=== PATIENT | female | born 1940 | race Caucasian/White ===

== ENCOUNTER 2017-06-24 19:41 | Inpatient (IN) | payer OTHER ==
[~2017-06-24] VITALS: Ht 154.9 cm; Wt 77.5 kg
[2017-06-24] MEDS ORDERED: AMLODIPINE (19:49)
[2017-06-24] MEDS ORDERED: SYNTHROID (19:49)
[2017-06-24] MEDS ORDERED: [UNRECOGNIZED DRUG - OTHER] (20:00)
[2017-06-24] MEDS ORDERED: VIT D (20:00)
[2017-06-24] MEDS ORDERED: SODIUM CHLORIDE 0.9% 1,000 ML IV ONE (20:09)
[2017-06-24] MEDS ORDERED: ONDANSETRON 2MG/ML, 2ML ONE ×2 (20:29→23:02)
[2017-06-24] MEDS ORDERED: MORPHINE SULFATE 4 MG/ML, 1ML ONE ×2 (20:29→21:09)
[2017-06-24] MEDS: MORPHINE SULFATE 4 MG/ML, 1ML IVPush PRN ×2 (20:30→21:10)
[2017-06-24] MEDS ORDERED: SODIUM CHLORIDE 0.9% 1,000ML IVBOLUS ONE (20:30)
[2017-06-24] MEDS ORDERED: SODIUM CHLORIDE FLUSH 10ML SYR IVF ONE (20:30)
[2017-06-24] MEDS ORDERED: ONDANSETRON 2MG/ML, 2ML IVPush ONE (20:30)
[2017-06-24 20:50] LABS: BASOPHILS # (AUTO) 0.02 x10^3/uL (0-0.1); BASOPHILS % (AUTO) 0 % (0-1); EOSINOPHILS # (AUTO) 0.04 x10^3/uL (0-0.4); EOSINOPHILS % (AUTO) 1 % (1-7); LYMPHOCYTES # (AUTO) 0.91 x10^3/uL (1-3.4); LYMPHOCYTES % (AUTO) 21 % (22-44); MD NO; MEAN CORPUSCULAR HEMOGLOBIN 32.1 pg (27.0-34.8); MEAN CORPUSCULAR HGB CONC 32.9 g/dL (32.4-35.8); MEAN CORPUSCULAR VOLUME 97.7 fL (80-100); MEAN PLATELET VOLUME 7.3 fL (7.4-10.4); MONOCYTES # (AUTO) 0.09 x10^3/uL (0.2-0.8); MONOCYTES % (AUTO) 2 % (2-9); NEUTROPHILS # (AUTO) 3.32 x10^3/uL (1.8-6.8); NEUTROPHILS % (AUTO) 76 % (42-75); PLATELET COUNT 389 x10^3/uL (130-400); RED CELL DISTRIBUTION WIDTH 14.7 % (9.6-15.2)
[2017-06-24 20:56] LABS: ACETONE, SERUM Small (20mg/dL) mg/dL (Negative)
[2017-06-24 20:57] LABS: INTERNATIONAL NORMALIZED RATIO 0.98 (0.93-1.1); PROTHROMBIN TIME 10.1 Seconds (9.6-11.5)
[2017-06-24 21:00] LABS: MICROSCOPIC NOT IND
[2017-06-24 21:01] LABS: ANION GAP 12 mmol/L (5-15); CALCIUM 8.3 mg/dL (8.5-10.1); CHLORIDE 105 mmol/L (98-107)
[2017-06-24 21:02] LABS: ALANINE AMINOTRANSFERASE 22 U/L (12-78); ALBUMIN 3.2 g/dL (3.4-5.0)
[2017-06-24 21:05] LABS: CULTURE INDICATED? NO
[2017-06-24 21:06] LABS: ALKALINE PHOSPHATASE 71 U/L (45-117); BILIRUBIN,TOTAL 0.3 mg/dL (0.2-1.0); TOTAL PROTEIN 7.2 g/dL (6.4-8.2)
[2017-06-24 21:08] LABS: TROPONIN I < 0.015 ng/mL (0.000-0.045)
[2017-06-24] MEDS ORDERED: METRONIDAZOLE PMX 500MG/100ML 100 ML ONE (22:20)
[2017-06-24] MEDS ORDERED: METRONIDAZOLE PMX 500MG/100ML 100 ML IVPB ONE (22:30)
[2017-06-24] MEDS ORDERED: CEFEPIME 2 GM in DEXTROSE 5% 100 ML IVPB ONE (22:30)
[2017-06-24] MEDS ORDERED: OMNIPAQUE 350 MG/ML, 100ML BOTTLE ONE (22:30)
[2017-06-24] MEDS ORDERED: HYDROmorphone 1 MG/ML, 1ML IVPush PRN (22:30)
[2017-06-24] MEDS ORDERED: SODIUM CHLORIDE FLUSH 10ML SYR IVF PRN (23:00)
[2017-06-24] MEDS ORDERED: FENTANYL PF 250 MCG/5ML ONE ×3 (23:00→23:42)
[2017-06-24] MEDS ORDERED: GLYCOPYRROLATE 0.2MG/1ML, 5ML ONE (23:02)
[2017-06-24] MEDS ORDERED: EPHEDRINE 50 MG/ML, 1ML ONE (23:02)
[2017-06-24] MEDS ORDERED: NEOSTIGMINE 1 MG/ML, 10ML ONE (23:02)
[2017-06-24] MEDS ORDERED: PROPOFOL 10 MG/ML, 20ML ONE (23:02)
[2017-06-24] MEDS ORDERED: ROCURONIUM 10 MG/ML,10ML ONE (23:02)
[2017-06-25] MEDS ORDERED: FENTANYL PF 250 MCG/5ML ONE (00:19)
[2017-06-25] MEDS ORDERED: LABETALOL 5MG/ML, 20ML IV PRN (00:30)
[2017-06-25] MEDS ORDERED: FENTANYL PF 100 MCG/2ML IV PRN (00:30)
[2017-06-25] MEDS ORDERED: ONDANSETRON 2MG/ML, 2ML IVPush PRN ×2 (00:30→01:00)
[2017-06-25] MEDS ORDERED: HYDROmorphone 1 MG/ML, 1ML IV PRN (00:30)
[2017-06-25] MEDS ORDERED: MEPERIDINE/PF 25MG/0.5ML IVPush PRN (00:30)
[2017-06-25] MEDS ORDERED: HYDROmorphone 2 MG/ML, 1ML ONE (00:45)
[2017-06-25] MEDS ORDERED: SODIUM CHLORIDE 0.9% 1,000 ML IV SCH (00:56)
[2017-06-25] MEDS ORDERED: POTASSIUM CHLORIDE 40 MEQ in SODIUM CHLORIDE 0.9% 500 ML IV ONE (01:00)
[2017-06-25] MEDS ORDERED: ENALAPRILAT 1.25 MG/ML, 2ML IVPush PRN (01:00)
[2017-06-25] MEDS ORDERED: hydrALAzine 20 MG/ML, 1ML IVPush PRN (01:00)
[2017-06-25] MEDS ORDERED: OXYcodone IR 5MG TABLET PO PRN (01:00)
[2017-06-25] MEDS ORDERED: ACETAMINOPHEN 325 MG TABLET PO PRN (01:00)
[2017-06-25] MEDS ORDERED: morphine SULFATE 10 MG/ML, 1ML IVPush PRN (01:00)
[2017-06-25 01:26] LABS: FREE T4 (FREE THYROXINE) 1.2 ng/dL (0.76-1.46)
[2017-06-25 01:30] LABS: HEMOGLOBIN A1C 5.7 % (4.2-6.3)
[2017-06-25] MEDS: PIPERACILLIN/TAZO/PMX 3.375GM 50 ML IV SCH ×5 (01:44→20:11)
[2017-06-25 02:27] VITALS: BP 155/68
[2017-06-25] MEDS ORDERED: DIPHENHYDRAMINE 50 MG/ML, 1ML IV PRN (02:30)
[2017-06-25] MEDS ORDERED: morphine SULFATE 10 MG/ML, 1ML IV PRN (02:30)
[2017-06-25] MEDS ORDERED: ACETAMINOPHEN 650 MG SUPP PR PRN (02:30)
[2017-06-25] MEDS ORDERED: ONDANSETRON 2MG/ML, 2ML IV PRN (02:30)
[2017-06-25 04:00] VITALS: BP 118/81
[2017-06-25] MEDS: LACTATED RINGERS 1,000 ML IV SCH ×2 (04:16→12:31)
[2017-06-25 04:47] LABS: ALBUMIN 2.2 g/dL (3.4-5.0); ANION GAP 9 mmol/L (5-15); CALCIUM 7.2 mg/dL (8.5-10.1); CHLORIDE 111 mmol/L (98-107)
[2017-06-25 04:51] LABS: ALANINE AMINOTRANSFERASE 21 U/L (12-78); ALKALINE PHOSPHATASE 45 U/L (45-117); BILIRUBIN,TOTAL 0.6 mg/dL (0.2-1.0); CREATININE 1.25 mg/dL (0.55-1.02); TOTAL PROTEIN 5.2 g/dL (6.4-8.2)
[2017-06-25 05:18] LABS: MEAN CORPUSCULAR HEMOGLOBIN 32.5 pg (27.0-34.8); MEAN CORPUSCULAR HGB CONC 33.2 g/dL (32.4-35.8); MEAN CORPUSCULAR VOLUME 97.8 fL (80-100); PLATELET COUNT 291 x10^3/uL (130-400); RED CELL DISTRIBUTION WIDTH 14.9 % (9.6-15.2)
[2017-06-25 05:51] LABS: BASOPHILS % (AUTO) 0 % (0-1); EOSINOPHILS % (AUTO) 0 % (1-7); LYMPHOCYTES # (AUTO) 0.39 x10^3/uL (1-3.4); LYMPHOCYTES % (AUTO) 17 % (22-44); MD SCAN; MONOCYTES # (AUTO) 0.25 x10^3/uL (0.2-0.8); MONOCYTES % (AUTO) 11 % (2-9); NEUTROPHILS # (AUTO) 1.68 x10^3/uL (1.8-6.8); NEUTROPHILS % (AUTO) 73 % (42-75)
[2017-06-25] MEDS ORDERED: INSULIN REGULAR, HUMAN 100 UNIT/ML 3ML VIAL LOW DOSE SS SQ-INSULIN SCH (07:00)
[2017-06-25] MEDS ORDERED: MAGNESIUM SULFATE PMX 4GM/100M 100 ML IV ONE (07:30)
[2017-06-25] MEDS ORDERED: INSULIN REGULAR 100 UNITS/ML, 3ML VIAL SQ-INSULIN SCH (09:00)
[2017-06-25] MEDS ORDERED: FAMOTIDINE 20 MG/2 ML IVPush SCH (09:00)
[2017-06-25] MEDS: ENOXAPARIN 30 MG/0.3 ML SQ SCH (12:29)
[2017-06-25] MEDS: FAMOTIDINE 20 MG/2 ML IVPush SCH ×2 (12:29→20:12)
[2017-06-25] MEDS: MICAFUNGIN 100 MG in SODIUM CHLORIDE 0.9% 100 ML IV SCH (12:33)
[2017-06-25] MEDS ORDERED: SODIUM CHLORIDE 0.9% 1,000ML IVBOLUS ONE (13:00)
[2017-06-26] MEDS: LACTATED RINGERS 1,000 ML IV SCH ×2 (00:54→07:00)
[2017-06-26] MEDS: PIPERACILLIN/TAZO/PMX 3.375GM 50 ML IV SCH ×4 (01:49→21:16)
[2017-06-26 04:00] VITALS: BP 123/55
[2017-06-26 04:43] LABS: BASOPHILS % (AUTO) 0 % (0-1); EOSINOPHILS % (AUTO) 0 % (1-7); LYMPHOCYTES # (AUTO) 0.61 x10^3/uL (1-3.4); LYMPHOCYTES % (AUTO) 5 % (22-44); MD NO; MEAN CORPUSCULAR HEMOGLOBIN 31.8 pg (27.0-34.8); MEAN CORPUSCULAR HGB CONC 32.2 g/dL (32.4-35.8); MEAN CORPUSCULAR VOLUME 98.7 fL (80-100); MEAN PLATELET VOLUME 7.4 fL (7.4-10.4); MONOCYTES # (AUTO) 0.37 x10^3/uL (0.2-0.8); MONOCYTES % (AUTO) 3 % (2-9); NEUTROPHILS % (AUTO) 92 % (42-75); PLATELET COUNT 267 x10^3/uL (130-400); RED BLOOD COUNT 4.28 x10^6/uL (3.82-5.3); RED CELL DISTRIBUTION WIDTH 14.9 % (9.6-15.2)
[2017-06-26 04:53] LABS: ALBUMIN 1.6 g/dL (3.4-5.0); ANION GAP 8 mmol/L (5-15); CALCIUM 7.1 mg/dL (8.5-10.1); CHLORIDE 114 mmol/L (98-107)
[2017-06-26 05:07] LABS: ALANINE AMINOTRANSFERASE 13 U/L (12-78); ALKALINE PHOSPHATASE 30 U/L (45-117); BILIRUBIN,TOTAL 0.4 mg/dL (0.2-1.0); CHOL/HDL RATIO 1.7; CHOLESTEROL, TOTAL 88 mg/dL (140-239); HDL CHOL % 59 % (28-40); HDL CHOLESTEROL (DIRECT) 52 mg/dL (40-60); LDL CHOLESTEROL,CALCULATED 27 mg/dL (54-169); LDL/HDL RATIO 0.5 (0.5-3.0); TRIGLYCERIDES 44 mg/dL (50-200); VLDL CHOLESTEROL 9 mg/dL (0-25)
[2017-06-26] MEDS ORDERED: ASPI-496 PO (06:53)
[2017-06-26] MEDS: ENOXAPARIN 30 MG/0.3 ML SQ SCH (09:53)
[2017-06-26] MEDS: FAMOTIDINE 20 MG/2 ML IVPush SCH ×2 (09:53→21:16)
[2017-06-26] MEDS: SODIUM CHLORIDE 0.9% 1,000 ML IV SCH ×2 (10:00→21:17)
[2017-06-26] MEDS: MICAFUNGIN 100 MG in SODIUM CHLORIDE 0.9% 100 ML IV SCH (12:52)
[2017-06-26 12:59] VITALS: BP 133/82
[2017-06-26 19:47] VITALS: BP 103/55
[2017-06-27 01:46] VITALS: BP 98/86
[2017-06-27] MEDS: PIPERACILLIN/TAZO/PMX 3.375GM 50 ML IV SCH ×4 (02:16→20:41)
[2017-06-27 05:15] LABS: ALANINE AMINOTRANSFERASE 13 U/L (12-78); ALBUMIN 1.5 g/dL (3.4-5.0); ANION GAP 6 mmol/L (5-15); CALCIUM 7.3 mg/dL (8.5-10.1); CHLORIDE 113 mmol/L (98-107); CREATININE 0.98 mg/dL (0.55-1.02); MEAN CORPUSCULAR HGB CONC 32.8 g/dL (32.4-35.8); MEAN CORPUSCULAR VOLUME 97.4 fL (80-100); PLATELET COUNT 229 x10^3/uL (130-400); RED BLOOD COUNT 3.56 x10^6/uL (3.82-5.3); RED CELL DISTRIBUTION WIDTH 14.6 % (9.6-15.2)
[2017-06-27 05:17] LABS: ALKALINE PHOSPHATASE 38 U/L (45-117); BILIRUBIN,TOTAL 0.4 mg/dL (0.2-1.0); TOTAL PROTEIN 5.3 g/dL (6.4-8.2)
[2017-06-27 06:18] LABS: BASOPHILS % (AUTO) 0 % (0-1); EOSINOPHILS % (AUTO) 0 % (1-7); LYMPHOCYTES # (AUTO) 0.55 x10^3/uL (1-3.4); LYMPHOCYTES % (AUTO) 6 % (22-44); MD SCAN; MONOCYTES # (AUTO) 0.23 x10^3/uL (0.2-0.8); MONOCYTES % (AUTO) 2 % (2-9); NEUTROPHILS # (AUTO) 8.81 x10^3/uL (1.8-6.8); NEUTROPHILS % (AUTO) 92 % (42-75)
[2017-06-27] MEDS: SODIUM CHLORIDE 0.9% 1,000 ML IV SCH ×3 (06:35→23:59)
[2017-06-27 07:22] VITALS: BP 100/89
[2017-06-27] MEDS: ENOXAPARIN 30 MG/0.3 ML SQ SCH (07:41)
[2017-06-27] MEDS: FAMOTIDINE 20 MG/2 ML IVPush SCH (07:42)
[2017-06-27] MEDS: LEVOTHYROXINE 100 MCG INJ IVPush SCH (07:42)
[2017-06-27] MEDS ORDERED: morphine SULFATE 10 MG/ML, 1ML IV PRN (12:30)
[2017-06-27 13:13] VITALS: BP 118/59
[2017-06-27] MEDS: OXYcodone 5 MG/5 ML ORAL.SOL UDC PO PRN (20:09)
[2017-06-27 20:22] VITALS: BP 137/71
[2017-06-27] MEDS: ACETAMINOPHEN 325 MG TABLET PO PRN (23:59)
[2017-06-27] MEDS: DIPHENHYDRAMINE 25 MG CAPSULE PO PRN (23:59)
[2017-06-28] MEDS: PIPERACILLIN/TAZO/PMX 3.375GM 50 ML IV SCH (01:58)
[2017-06-28 03:29] VITALS: BP 139/83
[2017-06-28 04:52] LABS: MEAN CORPUSCULAR VOLUME 96.8 fL (80-100); MEAN PLATELET VOLUME 7.2 fL (7.4-10.4); PLATELET COUNT 247 x10^3/uL (130-400); RED BLOOD COUNT 3.39 x10^6/uL (3.82-5.3); RED CELL DISTRIBUTION WIDTH 14.8 % (9.6-15.2)
[2017-06-28 05:05] LABS: ANION GAP 9 mmol/L (5-15); CALCIUM 7.6 mg/dL (8.5-10.1); CHLORIDE 112 mmol/L (98-107)
[2017-06-28 05:48] LABS: BASOPHILS # (AUTO) 0.01 x10^3/uL (0-0.1); BASOPHILS % (AUTO) 0 % (0-1); EOSINOPHILS # (AUTO) 0.03 x10^3/uL (0-0.4); EOSINOPHILS % (AUTO) 0 % (1-7); LYMPHOCYTES # (AUTO) 0.61 x10^3/uL (1-3.4); LYMPHOCYTES % (AUTO) 5 % (22-44); MD SCAN; MONOCYTES # (AUTO) 0.41 x10^3/uL (0.2-0.8); MONOCYTES % (AUTO) 4 % (2-9); NEUTROPHILS # (AUTO) 10.35 x10^3/uL (1.8-6.8); NEUTROPHILS % (AUTO) 91 % (42-75)
[2017-06-28 06:38] VITALS: BP 162/93
[2017-06-28] MEDS: ENOXAPARIN 40 MG/0.4 ML SQ SCH (08:43)
[2017-06-28] MEDS: SODIUM CHLORIDE 0.9% 1,000 ML IV SCH (08:44)
[2017-06-28] MEDS: ERTAPENEM 1 GM in SODIUM CHLORIDE 0.9% 50 ML IV SCH (08:44)
[2017-06-28] MEDS: LEVOTHYROXINE 100 MCG INJ IVPush SCH (08:44)
[2017-06-28] MEDS: OXYcodone 5 MG/5 ML ORAL.SOL UDC PO PRN ×2 (12:46→16:27)
[2017-06-28 13:52] VITALS: BP 151/84
[2017-06-28 19:00] VITALS: BP 162/86
[2017-06-28] MEDS: DIPHENHYDRAMINE 25 MG CAPSULE PO PRN (21:06)
[2017-06-28] MEDS: ACETAMINOPHEN 325 MG TABLET PO PRN (21:06)
[2017-06-29] MEDS: D5%-0.9% NACL 1,000 ML IV SCH ×2 (00:11→22:00)
[2017-06-29 01:45] VITALS: BP 153/83
[2017-06-29] MEDS: ACETAMINOPHEN 325 MG TABLET PO PRN ×4 (02:01→22:01)
[2017-06-29] MEDS: OXYcodone 5 MG/5 ML ORAL.SOL UDC PO PRN (04:05)
[2017-06-29 04:57] LABS: BASOPHILS # (AUTO) 0.01 x10^3/uL (0-0.1); BASOPHILS % (AUTO) 0 % (0-1); EOSINOPHILS # (AUTO) 0.09 x10^3/uL (0-0.4); EOSINOPHILS % (AUTO) 1 % (1-7); LYMPHOCYTES # (AUTO) 0.66 x10^3/uL (1-3.4); LYMPHOCYTES % (AUTO) 8 % (22-44); MD NO; MEAN CORPUSCULAR HGB CONC 32.9 g/dL (32.4-35.8); MEAN PLATELET VOLUME 6.9 fL (7.4-10.4); MONOCYTES # (AUTO) 0.55 x10^3/uL (0.2-0.8); MONOCYTES % (AUTO) 7 % (2-9); NEUTROPHILS # (AUTO) 7.09 x10^3/uL (1.8-6.8); NEUTROPHILS % (AUTO) 85 % (42-75); PLATELET COUNT 269 x10^3/uL (130-400); RED BLOOD COUNT 3.51 x10^6/uL (3.82-5.3); RED CELL DISTRIBUTION WIDTH 14.8 % (9.6-15.2)
[2017-06-29 05:02] LABS: ANION GAP 7 mmol/L (5-15); CALCIUM 7.6 mg/dL (8.5-10.1); CHLORIDE 109 mmol/L (98-107); CREATININE 0.66 mg/dL (0.55-1.02)
[2017-06-29] MEDS: ERTAPENEM 1 GM in SODIUM CHLORIDE 0.9% 50 ML IV SCH (07:20)
[2017-06-29] MEDS: ENOXAPARIN 40 MG/0.4 ML SQ SCH (07:20)
[2017-06-29] MEDS: LEVOTHYROXINE 100 MCG INJ IVPush SCH (07:20)
[2017-06-29 07:35] VITALS: BP 162/87
[2017-06-29 07:38] VITALS: BP 152/85
[2017-06-29 13:14] VITALS: BP 156/89
[2017-06-29 19:35] VITALS: BP_SYST 165; BP_DIAS 94; BP_DIAS 99
[2017-06-30 02:09] VITALS: BP 153/84
[2017-06-30] MEDS: ACETAMINOPHEN 325 MG TABLET PO PRN ×2 (06:05→18:27)
[2017-06-30 08:01] VITALS: BP 150/87
[2017-06-30] MEDS: LEVOTHYROXINE 100 MCG INJ IVPush SCH (08:08)
[2017-06-30] MEDS: ENOXAPARIN 40 MG/0.4 ML SQ SCH (08:25)
[2017-06-30] MEDS: ERTAPENEM 1 GM in SODIUM CHLORIDE 0.9% 50 ML IV SCH (08:25)
[2017-06-30] MEDS: D5%-0.9% NACL 1,000 ML IV SCH (11:20)
[2017-06-30 14:17] VITALS: BP 163/80
[2017-06-30 19:10] VITALS: BP 160/88
[2017-07-01] MEDS: D5%-0.9% NACL 1,000 ML IV SCH ×2 (00:40→14:00)
[2017-07-01 01:13] VITALS: BP 167/93
[2017-07-01 08:00] VITALS: BP 167/97
[2017-07-01] MEDS: ENOXAPARIN 40 MG/0.4 ML SQ SCH (08:10)
[2017-07-01] MEDS: ERTAPENEM 1 GM in SODIUM CHLORIDE 0.9% 50 ML IV SCH (08:10)
[2017-07-01] MEDS: LEVOTHYROXINE 100 MCG INJ IVPush SCH (08:10)
[2017-07-01] MEDS ORDERED: POLYETHYLENE GLYCOL 17 GM PACKET PO PRN (11:00)
[2017-07-01 13:08] VITALS: BP 157/84
[2017-07-01] MEDS: ACETAMINOPHEN 325 MG TABLET PO PRN ×2 (13:53→20:56)
[2017-07-01 19:33] VITALS: BP 145/82
[2017-07-02] MEDS: ACETAMINOPHEN 325 MG TABLET PO PRN ×3 (01:37→19:09)
[2017-07-02 01:51] VITALS: BP 154/89
[2017-07-02] MEDS: D5%-0.9% NACL 1,000 ML IV SCH ×2 (03:20→13:51)
[2017-07-02] MEDS: LEVOTHYROXINE 50 MCG TABLET PO SCH (04:45)
[2017-07-02 05:19] LABS: ALANINE AMINOTRANSFERASE 12 U/L (12-78); ALBUMIN 1.7 g/dL (3.4-5.0); ANION GAP 6 mmol/L (5-15); CHLORIDE 105 mmol/L (98-107); CREATININE 0.63 mg/dL (0.55-1.02)
[2017-07-02 05:21] LABS: ALKALINE PHOSPHATASE 58 U/L (45-117); BASOPHILS # (AUTO) 0.01 x10^3/uL (0-0.1); BASOPHILS % (AUTO) 0 % (0-1); BILIRUBIN,TOTAL 0.3 mg/dL (0.2-1.0); EOSINOPHILS # (AUTO) 0.16 x10^3/uL (0-0.4); EOSINOPHILS % (AUTO) 2 % (1-7); LYMPHOCYTES # (AUTO) 0.88 x10^3/uL (1-3.4); LYMPHOCYTES % (AUTO) 8 % (22-44); MD NO; MEAN CORPUSCULAR HEMOGLOBIN 31.8 pg (27.0-34.8); MEAN CORPUSCULAR HGB CONC 33.4 g/dL (32.4-35.8); MEAN CORPUSCULAR VOLUME 95.2 fL (80-100); MONOCYTES # (AUTO) 0.59 x10^3/uL (0.2-0.8); MONOCYTES % (AUTO) 5 % (2-9); NEUTROPHILS # (AUTO) 9.45 x10^3/uL (1.8-6.8); NEUTROPHILS % (AUTO) 85 % (42-75); PLATELET COUNT 353 x10^3/uL (130-400); RED BLOOD COUNT 3.58 x10^6/uL (3.82-5.3); RED CELL DISTRIBUTION WIDTH 14.8 % (9.6-15.2); TOTAL PROTEIN 5.9 g/dL (6.4-8.2)
[2017-07-02 07:20] VITALS: BP 168/94
[2017-07-02] MEDS: ERTAPENEM 1 GM in SODIUM CHLORIDE 0.9% 50 ML IV SCH (07:53)
[2017-07-02] MEDS: ENOXAPARIN 40 MG/0.4 ML SQ SCH (07:53)
[2017-07-02 14:13] VITALS: BP 151/89
[2017-07-02 18:44] VITALS: BP 146/82
[2017-07-03 00:38] VITALS: BP 154/83
[2017-07-03] MEDS: OXYcodone 5 MG/5 ML ORAL.SOL UDC PO PRN (00:48)
[2017-07-03] MEDS: D5%-0.9% NACL 1,000 ML IV SCH ×2 (04:31→19:20)
[2017-07-03] MEDS: LEVOTHYROXINE 50 MCG TABLET PO SCH (06:39)
[2017-07-03 07:41] VITALS: BP 171/92
[2017-07-03] MEDS: ENOXAPARIN 40 MG/0.4 ML SQ SCH (07:49)
[2017-07-03] MEDS: ERTAPENEM 1 GM in SODIUM CHLORIDE 0.9% 50 ML IV SCH (07:49)
[2017-07-03] MEDS ORDERED: AMLO5TAB2 PO (09:32)
[2017-07-03] MEDS ORDERED: ACET325T14 PO (09:32)
[2017-07-03] MEDS ORDERED: POLY17PO5 PO (09:32)
[2017-07-03] MEDS ORDERED: LEVO50TA PO (09:32)
[2017-07-03] MEDS ORDERED: DIPH25CA61 PO (09:32)
[2017-07-03] MEDS ORDERED: AMPI1.5V IV (09:32)
[2017-07-03] MEDS ORDERED: ALBUTEROL SULFATE 2.5 MG/3 ML ONE (09:47)
[2017-07-03] MEDS ORDERED: ALBUTEROL SULFATE 2.5 MG/3 ML NPPB ONE (10:00)
[2017-07-03] MEDS: AMLODIPINE 5 MG TABLET PO SCH ×2 (10:31→20:33)
[2017-07-03] MEDS: ACETAMINOPHEN 325 MG TABLET PO PRN ×2 (13:03→17:29)
[2017-07-03 13:28] LABS: MICROSCOPIC INDICATED
[2017-07-03 13:36] LABS: CULTURE INDICATED? NO
[2017-07-03 14:46] VITALS: BP 127/74
[2017-07-03 18:54] VITALS: BP 152/77
[2017-07-04 02:45] VITALS: BP 137/83
[2017-07-04] MEDS: LEVOTHYROXINE 50 MCG TABLET PO SCH (06:22)
[2017-07-04 07:08] VITALS: BP 136/78
[2017-07-04] MEDS: ENOXAPARIN 40 MG/0.4 ML SQ SCH (08:04)
[2017-07-04] MEDS: AMLODIPINE 5 MG TABLET PO SCH ×2 (08:04→20:55)
[2017-07-04] MEDS: ERTAPENEM 1 GM in SODIUM CHLORIDE 0.9% 50 ML IV SCH (08:04)
[2017-07-04 12:44] VITALS: BP 136/80
[2017-07-04] MEDS: ACETAMINOPHEN 325 MG TABLET PO PRN ×3 (13:27→21:44)
[2017-07-04 20:03] VITALS: BP 122/60
[2017-07-05 01:46] VITALS: BP 150/66
[2017-07-05] MEDS: LEVOTHYROXINE 50 MCG TABLET PO SCH (06:00)
[2017-07-05] MEDS ORDERED: LEVOTHYROXINE 25 MCG TABLET ONE (06:20)
[2017-07-05 07:24] VITALS: BP 146/79
[2017-07-05] MEDS: ERTAPENEM 1 GM in SODIUM CHLORIDE 0.9% 50 ML IV SCH (08:02)
[2017-07-05] MEDS: AMLODIPINE 5 MG TABLET PO SCH (08:02)
[2017-07-05] MEDS: ENOXAPARIN 40 MG/0.4 ML SQ SCH (08:02)
[2017-07-05 12:29] VITALS: BP 138/78
[2017-07-05 15:45] VITALS: BP 133/71
== END 2017-07-05 17:14 | DRG 853 ==
LOC: OR 22:54 → EDIP 22:55 → CCU 06-25 01:28 → ICU 06-25 08:24 → 4NOR 06-26 12:47
PROVIDERS: ADMIT Internal Medicine; ATTEND Hospitalist
PROC: 0T9B70Z Drainage of Bladder with Drainage Device, Via Natural or Artificial Opening (ICD-10-PCS; 2017-06-24)
PROC: 0DB80ZZ Excision of Small Intestine, Open Approach (ICD-10-PCS; principal; 2017-06-24 22:45)
PROC: 02HV33Z Insertion of Infusion Device into Superior Vena Cava, Percutaneous Approach (ICD-10-PCS; 2017-07-01)
PROC: B548ZZA Ultrasonography of Superior Vena Cava, Guidance (ICD-10-PCS; 2017-07-01)
DX: A41.9 Sepsis, unspecified organism (principal); K63.1 Perforation of intestine (nontraumatic); N17.0 Acute kidney failure with tubular necrosis; E43 Unspecified severe protein-calorie malnutrition; K56.699 Other intestinal obstruction unspecified as to partial versus complete obstruction; G93.40 Encephalopathy, unspecified; K85.90 Acute pancreatitis without necrosis or infection, unspecified; K65.2 Spontaneous bacterial peritonitis; E86.0 Dehydration; B96.89 Other specified bacterial agents as the cause of diseases classified elsewhere; E03.9 Hypothyroidism, unspecified; Z68.32 Body mass index [BMI] 32.0-32.9, adult; E87.6 Hypokalemia; G89.29 Other chronic pain; I10 Essential (primary) hypertension; M81.0 Age-related osteoporosis without current pathological fracture; Z79.82 Long term (current) use of aspirin; Z79.899 Other long term (current) drug therapy; Z87.891 Personal history of nicotine dependence
CPT/HCPCS: 36415; 36569; 71045; 74177; 76937; 77001; 80048; 80053; 80061; 80307; 81001; 81003; 82010; 82140; 83036; 83605; 83690; 83735; 83880; 84100; 84439; 84443; 84484; 85025; 85610; 85730; 86850; 86900; 87040; 87070; 87075; 87077; 87081; 87186; 87205; 88307; 93005; 94640; 96361; 96365; 96375; 96376; C1729; J1170; J1335; J1650; J2248; J2270; J2405; J2543; J2704; J2710; J3010; J3480; J3490; J7042; J7613; Q9967; C1751; C1765; J3475; J7030; J7040; J7120; Q0163; S0028

== ENCOUNTER 2019-04-19 15:24 | Emergency (ER) | payer MEDICARE, OTHER ==
[~2019-04-19] VITALS: Ht 154.9 cm; Wt 78.2 kg
[~2019-04-19 15:24] MED LIST: ACET325T14 PO; AMLO-150 PO; AMLODIPINE; AMPI1.5V IV; ASPI-496 PO; DIPH25CA61 PO; LEVO50TA PO; POLY17PO5 PO; SYNTHROID; VIT D; [UNRECOGNIZED DRUG - OTHER]
[2019-04-19 15:29] VITALS: BP 141/66
--- NOTE | 2019-04-19 16:24 | NUR ---
PT BACK FROM XRAY, CALL LIGHT WITHIN REACH, WARM BLANKET PROVIDED. FAMILY AT BS.
--- NOTE | 2019-04-19 16:39 | NUR ---
XR RESULTS BACK, PT FOR RECHECK.
[2019-04-19] MEDS ORDERED: METHYLNALTREXONE 12 MG/0.6 ML SYR SQ ONE ×2 (18:00→18:03)
== END 2019-04-19 18:13 | disposition home or self-care (01) ==
LOC: ED 17:27
DX: K59.00 Constipation, unspecified (principal); R10.30 Lower abdominal pain, unspecified; I10 Essential (primary) hypertension; E03.9 Hypothyroidism, unspecified
CPT/HCPCS: 74021; 96372; 99283